=== PATIENT | female | born 1990 | race Two or more races ===

== ENCOUNTER 2017-05-22 00:06 | Emergency (ER) | payer SELFPAY ==
[2017-05-22] MEDS ORDERED: IPRATROPIUM/ALBUTEROL 0.5-2.5 MG/3 ML AMPUL NEB ONE ×2 (00:26→00:27)
[2017-05-22] MEDS ORDERED: PREDNISONE 20 MG TABLET PO ONE (00:27)
[2017-05-22] MEDS: ALBUTEROL SULFATE 0.083% NEB 2.5 MG/3 ML AMPUL NEB SCH ×2 (00:56→00:59)
--- NOTE | 2017-05-22 01:25 | RADIOLOGY REPORT (SQ) ---
EXAM DESCRIPTION: CHEST SINGLE VIEW CLINICAL HISTORY: sob COMPARISON: None. FINDINGS: Single frontal view of the chest. The cardiomediastinal silhouette has normal size and contour. No consolidation, pneumothorax, or pleural effusion. No displaced rib fractures identified. Upper abdominal soft tissues are unremarkable. IMPRESSION: 1. No acute pulmonary process identified.
[2017-05-22] MEDS ORDERED: ALBUTEROL SULFATE HFA (90 MCG/PUFF) 8 GM MDI (1 MDI/ER DISP) IH PRN (01:33)
--- NOTE | 2017-05-22 01:37 | ER Document Report ---
ED General - General Chief Complaint: Shortness Of Breath Stated Complaint: DIFFICULTY BREATHING Notes: Patient is a 26 year old female with a past medical history of asthma who presents with shortness of breath over the last 24 hours. Patient reports that she is currently out of all control medications as well as her albuterol inhaler. She notes that this has been the case for the past 6 months since she moved down from [place]. Today she states that over the past 12-14 hours she noted progressively worsening wheezing and tightness. Nothing seemed to improve or worsen the symptoms. She states this feels similar to when she has had mild asthma exacerbations in the past. She does not have a primary care doctor with whom she can receive medications. She denies any fever, cough, syncope, or chest pain. No vomiting. No known sick contacts. TRAVEL OUTSIDE OF THE [place] IN LAST 30 DAYS: No - Related Data Allergies/Adverse Reactions: No Known Allergies Allergy (Verified 05/22/17 00:12) Past Medical History - General Information source: Patient - Social History Smoking Status: Current Some Day Smoker Frequency of alcohol use: None Drug Abuse: None Lives with: Spouse/Significant other Family History: Reviewed & Not Pertinent Patient has suicidal ideation: No Patient has homicidal ideation: No Pulmonary Medical History: Reports: Hx Asthma Renal/ Medical History: Denies: Hx Peritoneal Dialysis Review of Systems - Review of Systems Notes: Constitutional: Negative for fever. HENT: Negative for sore throat. Eyes: Negative for visual changes. Cardiovascular: Negative for chest pain. Respiratory: Positive for shortness of breath. Gastrointestinal: Negative for abdominal pain, vomiting or diarrhea. Genitourinary: Negative for dysuria. Musculoskeletal: Negative for back pain. Skin: Negative for rash. Neurological: Negative for headaches, weakness or numbness. 10 point ROS negative except as marked above and in HPI. Physical Exam - Vital signs Vitals: Temp Pulse Resp BP Pulse Ox 98.9 F 102 H 22 H 150/87 H 94 05/22/17 00:10 05/22/17 00:10 05/22/17 00:10 05/22/17 00:10 05/22/17 00:10 Interpretation: Tachycardic Notes: PHYSICAL EXAMINATION: GENERAL: Well-appearing, well-nourished and in no acute distress. HEAD: Atraumatic, normocephalic. EYES: Pupils equal round and reactive to light, extraocular movements intact, sclera anicteric, conjunctiva are normal. ENT: nares patent, oropharynx clear without exudates. Moist mucous membranes. NECK: Normal range of motion, supple without lymphadenopathy LUNGS: Breath sounds clear to auscultation bilaterally and equal. Scant expiratory wheezing in all lung benz. HEART: Regular rate and rhythm without murmurs ABDOMEN: Soft, nontender, normoactive bowel sounds. No guarding, no rebound. No masses appreciated. EXTREMITIES: Normal range of motion, no pitting or edema. No cyanosis. NEUROLOGICAL: No focal neurological deficits. Moves all extremities spontaneously and on command. PSYCH: Normal mood, normal affect. SKIN: Warm, Dry, normal turgor, no rashes or lesions noted. Course - Re-evaluation Re-evalutation: 05/22/17 01:34 Patient presents with a mild exacerbation of their baseline asthma. Mild wheezing at time of presentation but vitals do not show significant hypoxemia or tachypnea. No retractions. Patient did clinically improve after receiving nebulizers here in the emergency department. Chest x-ray without evidence of an acute pneumonia. Patient able to ambulate without any respiratory distress. Based on patient's overall reassuring assessment, I believe they are stable for outpatient management with steroids. I do not suspect an acute alternative pathology at this time based on history and exam including acute pulmonary embolus, ACS, pneumothorax, or aortic dissection. At this time will discharge with return precautions and follow-up recommendations. Verbal discharge instructions given a the bedside and opportunity for questions given. Medication warnings reviewed. Patient is in agreement with this plan and has verbalized understanding of return precautions and the need for primary care follow-up in the next 24-72 hours. - Vital Signs Vital signs: Temp Pulse Resp BP Pulse Ox 98.7 F 97 22 H 136/76 H 100 05/22/17 01:42 05/22/17 01:42 05/22/17 00:10 05/22/17 01:42 05/22/17 01:42 - Diagnostic Test Radiology reviewed: Image reviewed, Reports reviewed Radiology results interpreted by me: 05/22/17 01:34 Chest x-ray: No acute infiltrate or pneumothorax Discharge - Discharge Clinical Impression: Asthma exacerbation Qualifiers: Asthma severity: mild Asthma persistence: persistent Qualified Code(s): J45.31 - Mild persistent asthma with (acute) exacerbation Condition: Good Disposition: HOME, SELF-CARE Additional Instructions: You were seen for an asthma exacerbation. Your symptoms improved with treatment here in the emergency department. However, it is very important that you return to the emergency department immediately if you began to have worsening difficulty breathing that does not respond to your normal home nebulizers. You are also being sent home on a five-day course of steroids that you should start taking tomorrow. Please also follow closely with your primary care physician. you should also return to emergency department if you develop fever greater than 101, persistent cough, persistent vomiting, pass out, or any other symptoms that are concerning to you. Prescriptions: Albuterol Sulfate [Proair HFA Inhalation Aerosol 8.5 gm MDI] 2 puff IH Q4H PRN # 1 mdi PRN Reason: Beclomethasone Dipropionate [Qvar] 1 - 2 inh IH BID PRN #1 aer.w.[email or web address] PRN Reason: Prednisone [Deltasone 20 mg Tablet] 3 tab PO DAILY 5 Days tablet
[2017-05-22 01:44] VITALS: BP 136/76
== END 2017-05-22 01:43 | disposition home or self-care (01) ==
LOC: ER 00:06
DX: J45.31 Mild persistent asthma with (acute) exacerbation (principal); T48.6X6A Underdosing of antiasthmatics, initial encounter; Z91.128 Patient's intentional underdosing of medication regimen for other reason; Z91.14 Patient's other noncompliance with medication regimen; F17.200 Nicotine dependence, unspecified, uncomplicated
CPT/HCPCS: 94640 ×2; 99284; 71045; J7512; J7620

== ENCOUNTER 2019-01-20 08:13 | Emergency (ER) | payer SELFPAY ==
[2019-01-20 08:18] VITALS: BP 128/68
[2019-01-20] MEDS ORDERED: HYDROCODONE/ACETAMINOPHEN 5-325 MG TABLET PO ONE (08:58)
[2019-01-20] MEDS ORDERED: ACETAMINOPHEN 325 MG TABLET PO ONE (08:58)
[2019-01-20] MEDS ORDERED: IBUPROFEN 600 MG TABLET PO ONE (08:58)
--- NOTE | 2019-01-20 09:01 | RADIOLOGY REPORT (SQ) ---
EXAM DESCRIPTION: WRIST LEFT 3 VIEWS COMPLETED DATE/TIME: 01/20/2019 8:43 am REASON FOR STUDY: injury to left wrist COMPARISON: None. NUMBER OF VIEWS: Three views. TECHNIQUE: AP, lateral, and oblique radiographic images acquired of the left wrist. LIMITATIONS: None. FINDINGS: MINERALIZATION: Normal. BONES: No acute fracture or dislocation. No worrisome bone lesions. Normal alignment. SOFT TISSUES: No soft tissue swelling. No foreign body. OTHER: No other significant finding. IMPRESSION: NEGATIVE STUDY OF THE LEFT WRIST. NO RADIOGRAPHIC EVIDENCE OF ACUTE INJURY. TECHNICAL DOCUMENTATION: JOB ID: [id number] [employer]- All Rights Reserved Reading location - IP/workstation name: [email or web address]
[2019-01-20] MEDS ORDERED: HYDROCODONE/ACETAMINOPHEN 5-325 MG (6 TAB/ER DISP) PO PRN (09:54)
--- NOTE | 2019-01-20 10:09 | ER Document Report ---
HPI - HPI Patient complains to provider of: L wrist injury Time Seen by Provider: 01/20/19 08:32 Pain Level: 5 Context: 28-year-old female presents to the emergency department with a left wrist injury sustained yesterday. She states that she was sitting in her closet cleaning it and she reached back and pushed off of the floor to get up when she developed acute pain. Patient said that she has swelling to the radial aspect of the wrist, is in acute pain and is crying, has range of motion that is limited secondary to pain, 2+ radial pulse, brisk cap refill, can give me an okay and thumbs up sign. - MUSCULOSKELETAL Musculoskeletal: REPORTS: Extremity pain Past Medical History - Social History Smoking Status: Current Some Day Smoker Family History: Reviewed & Not Pertinent Patient has suicidal ideation: No Patient has homicidal ideation: No Pulmonary Medical History: Reports: Hx Asthma Renal/ Medical History: Denies: Hx Peritoneal Dialysis Vertical Provider Document - CONSTITUTIONAL Notes: PHYSICAL EXAMINATION: Reviewed vital signs and charting by RN GENERAL: Alert, interacts well. No acute distress. HEAD: Normocephalic, atraumatic. EYES: Pupils equal and round. Extraocular movements intact. ENT: Oral mucosa moist, tongue midline. NECK: Full range of motion. Trachea midline. EXTREMITIES: Moves all 4 extremities spontaneously. Acute tenderness to palpation of the lateral left wrist over the distal radius, there is some mild edema with no ecchymosis, 2+ radial pulse, brisk cap refill, sensation intact light touch PSYCH: Normal affect, normal mood. SKIN: Warm, dry, normal turgor. No rashes or lesions noted. - INFECTION CONTROL TRAVEL OUTSIDE OF THE [place] IN LAST 30 DAYS: No Course - Re-evaluation Re-evalutation: 01/20/19 10:17 X-ray negative for fracture dislocation. Most likely soft tissue injury. I have given her analgesia. Plan is to put her in a cock-up splint with follow-up with orthopedics as needed. Stable for discharge. - Vital Signs Vital signs: Temp Pulse Resp BP Pulse Ox 98.5 F 78 16 128/68 H 100 01/20/19 08:17 01/20/19 08:17 01/20/19 08:17 01/20/19 08:17 01/20/19 08:17 Discharge - Discharge Clinical Impression: Left wrist injury Qualifiers: Encounter type: initial encounter Qualified Code(s): S69.92XA - Unspecified injury of left wrist, hand and finger(s), initial encounter Condition: Good Disposition: HOME, SELF-CARE Additional Instructions: You most likely have a sprained left wrist. X-ray did not show any fracture or dislocation which is very reassuring. I have given you something called a cock- up splint which you can wear for comfort. I have also given you information for the orthopedist on-call and you can call them if your symptoms do not improve in the next 2 to 3 weeks. Please take Tylenol 1000 mg every 6 hours for pain and/or ibuprofen 600 mg every 6 hours with food and/or milk for pain and inflammation. I have given you a very short course of pain medication that you can take in the evenings before bed to help you sleep. Please return to the emergency department if your hand starts to become discolored, you lose feeling in it, he develop acute arm weakness, or you have any other concerning symptoms. Forms: Return to Work Referrals: NASH LOW JR, DO [ACTIVE PROVISIONAL STAFF] - Follow up as needed
== END 2019-01-20 10:13 | disposition home or self-care (01) ==
LOC: ER 08:13
DX: S69.92XA Unspecified injury of left wrist, hand and finger(s), initial encounter (principal); Y93.E9 Activity, other interior property and clothing maintenance; J45.909 Unspecified asthma, uncomplicated; F17.200 Nicotine dependence, unspecified, uncomplicated
CPT/HCPCS: 73110; L3908; 99283

== ENCOUNTER 2019-05-24 22:49 | Emergency (ER) | payer SELFPAY ==
[2019-05-24] MEDS ORDERED: ONDANSETRON HCL INJ/PF 4 MG/2 ML SDV IV ONE (23:35)
[2019-05-24] MEDS ORDERED: NORMAL SALINE 1000 ML 1,000 ML IV ONE (23:35)
--- NOTE | 2019-05-24 23:36 | ER Document Report ---
ED Medical Screen (RME) - General Chief Complaint: Flu Symptoms Stated Complaint: POSSIBLE FOOD POISIONING Notes: Patient is a 28-year-old female with no reported past medical history presents to the emergency department with a chief complaint of nausea and vomiting that began 2 days ago. She states it was initially associated with some diarrhea but that has stopped as of yesterday. She admits to subjective fevers at home. Denies any known sick contacts or recent travel. Admits to widespread myalgias. No localized pains. Denies any vaginal bleeding or discharge. No reported urinary complaints. I have treated and performed a rapid initial assessment of this patient. A comprehensive ED assessment and evaluation of the patient, analysis of test results and completion of medical decision making process will be conducted by additional ED providers. TRAVEL OUTSIDE OF THE [place] IN LAST 30 DAYS: No - Related Data Allergies/Adverse Reactions: No Known Allergies Allergy (Verified 01/20/19 08:17) Past Medical History Pulmonary Medical History: Reports: Hx Asthma Renal/ Medical History: Denies: Hx Peritoneal Dialysis Physical Exam - Vital signs Vitals: Temp Pulse Resp BP Pulse Ox 98.0 F 107 H 22 H 131/103 H 98 05/24/19 22:56 05/24/19 22:56 05/24/19 22:56 05/24/19 22:56 05/24/19 22:56 Course - Vital Signs Vital signs: Temp Pulse Resp BP Pulse Ox 98.0 F 107 H 22 H 131/103 H 98 05/24/19 22:56 05/24/19 22:56 05/24/19 22:56 05/24/19 22:56 05/24/19 22:56
[2019-05-25 00:07] LABS: APPEARANCE,URINE SLIGHTLY-CLOUDY; BILIRUBIN,URINE NEGATIVE (NEGATIVE); COLOR,URINE AMBER; GLUCOSE, URINE NEGATIVE (NEGATIVE); KETONES,URINE 80 mg/dL (NEGATIVE); LEUKOCYTE ESTERASE,URINE NEGATIVE (NEGATIVE); NITRITE,URINE NEGATIVE (NEGATIVE); PROTEIN,URINE 100 mg/dL (NEGATIVE); URINE SPECIFIC GRAVITY 1.031
[2019-05-25 00:09] LABS: ABSOLUTE BASOPHILS # (AUTO) 0.1 10^3/uL (0.0-0.2); ABSOLUTE LYMPHOCYTES (AUTO) 2.4 10^3/uL (0.5-4.7); LYMPHOCYTES % (AUTO) 16.5 % (13-45); TOTAL CELLS COUNTED % (AUTO) 100 %
[2019-05-25 00:22] LABS: ALBUMIN 4.9 g/dL (3.5-5.0); ALKALINE PHOSPHATASE 81 U/L (38-126); ANION GAP 18 (5-19); ASPARTATE AMINO TRANSFERASE 17 U/L (14-36); BILIRUBIN,DIRECT 0.3 mg/dL (0.0-0.4); BILIRUBIN,TOTAL 0.9 mg/dL (0.2-1.3); BLOOD UREA NITROGEN 15 mg/dL (7-20); CALCIUM 9.9 mg/dL (8.4-10.2); CARBON DIOXIDE 17 mmol/L (22-30); CHLORIDE 106 mmol/L (98-107); GLUCOSE 123 mg/dL (75-110); POTASSIUM 3.8 mmol/L (3.6-5.0); TOTAL PROTEIN 8.3 g/dL (6.3-8.2)
[2019-05-25 00:24] LABS: ABSOLUTE EOSINOPHILS # (AUTO) 0.4 10^3/uL (0.0-0.6); ABSOLUTE MONOCYTES (AUTO) 0.8 10^3/uL (0.1-1.4); ABSOLUTE NEUT (AUTO) 10.7 10^3/uL (1.7-8.2); BASOPHILS % (AUTO) 0.4 % (0-2); EOSINOPHILS % (AUTO) 2.5 % (0-6); HEMATOCRIT 49.8 % (36.0-47.0); HEMOGLOBIN 16.7 g/dL (12.0-15.5); MEAN CORPUSCULAR HEMOGLOBIN 26.4 pg (27.0-33.4); MEAN CORPUSCULAR HGB CONC 33.4 g/dL (32.0-36.0); MEAN CORPUSCULAR VOLUME 79 fl (80-97); MONOCYTES % (AUTO) 5.6 % (3-13); PLATELET COUNT 235 10^3/uL (150-450); RED BLOOD COUNT 6.32 10^6/uL (3.72-5.28); RED CELL DISTRIBUTION WIDTH 14.1 % (11.5-14.0); WHITE BLOOD COUNT 14.3 10^3/uL (4.0-10.5)
[2019-05-25 00:28] LABS: A TYPE INFLUENZA AG NEGATIVE (NEGATIVE); B INFLUENZA AG NEGATIVE (NEGATIVE)
[2019-05-25] MEDS ORDERED: METOCLOPRAMIDE HCL INJ/PF 10 MG/2 ML SDV IV ONE (02:06)
[2019-05-25] MEDS ORDERED: KETOROLAC TROMETHAMINE INJ/PF 30 MG/1 ML SDV IV ONE (02:06)
[2019-05-25] MEDS: NORMAL SALINE 1000 ML 1,000 ML IV PRN ×2 (02:15→03:22)
--- NOTE | 2019-05-25 04:17 | ER Document Report ---
ED General - General Chief Complaint: Flu Symptoms Stated Complaint: POSSIBLE FOOD POISIONING Time Seen by Provider: 05/25/19 01:30 Notes: 28-year-old female presents with 2-day history of nausea/vomiting/diarrhea, fevers, and generalized body aches. Patient states that the diarrhea has been resolved as of yesterday. Patient denies any sick contacts or recent travel. Patient states she has been unable to keep anything down. TRAVEL OUTSIDE OF THE [place] IN LAST 30 DAYS: No - Related Data Allergies/Adverse Reactions: No Known Allergies Allergy (Verified 01/20/19 08:17) Past Medical History - Social History Smoking Status: Current Some Day Smoker Family History: Reviewed & Not Pertinent Patient has suicidal ideation: No Patient has homicidal ideation: No Pulmonary Medical History: Reports: Hx Asthma Renal/ Medical History: Denies: Hx Peritoneal Dialysis Review of Systems - Review of Systems Notes: Constitutional: Negative for fever. HENT: Negative for sore throat. Eyes: Negative for visual changes. Cardiovascular: Negative for chest pain. Respiratory: Negative for shortness of breath. Gastrointestinal: Positive for nausea/vomiting/diarrhea. Genitourinary: Negative for dysuria. Musculoskeletal: Positive for generalized body aches. Negative for back pain. Skin: Negative for rash. Neurological: Negative for headaches, weakness or numbness. 10 point ROS negative except as marked above and in HPI. Physical Exam - Vital signs Vitals: Temp Pulse Resp BP Pulse Ox 98.0 F 107 H 22 H 131/103 H 98 05/24/19 22:56 05/24/19 22:56 05/24/19 22:56 05/24/19 22:56 05/24/19 22:56 - Notes Notes: GENERAL: Well-appearing, well-nourished and uncomfortable. HEAD: Atraumatic, normocephalic. EYES: Extraocular movements intact, sclera anicteric, conjunctiva are normal. ENT: TMs normal, nares patent, oropharynx clear without exudates. Moist mucous membranes. NECK: Normal range of motion, supple without lymphadenopathy or JVD. LUNGS: Breath sounds clear to auscultation bilaterally and equal. No wheezes rales or rhonchi. HEART: Tachycardic without murmurs, rubs or gallops. ABDOMEN: Soft, diffusely tender. No guarding, no rebound. No masses appreciated. EXTREMITIES: Normal range of motion, no pitting or edema. No clubbing or cyanosis. NEUROLOGICAL: Cranial nerves II through XII grossly intact. Normal speech, normal gait. PSYCH: Normal mood, normal affect. SKIN: Warm, Dry, normal turgor, no rashes or lesions noted. Course - Re-evaluation Re-evalutation: 05/25/19 28-year-old female presents with flulike symptoms. Patient was initially given Zofran and IV fluids at triage with little relief in symptoms. Reglan and Toradol were ordered. Abdomen soft diffusely tender. Patient is tachycardic. PE is otherwise unremarkable. Labs indicate that patient is dehydrated. More IV fluids were ordered. 05/25/19 05:29 Pt feels much better. PO tolerant. Pt appears clinically improved. Will send pt home with script for Reglan and ibuprofen. Pt given close follow up with PCP and strict return precautions. Pt voices understanding and agrees with plan of care. - Vital Signs Vital signs: Temp Pulse Resp BP Pulse Ox 98.0 F 107 H 22 H 131/103 H 98 05/24/19 22:56 05/24/19 22:56 05/24/19 22:56 05/24/19 22:56 05/24/19 22:56 - Laboratory Result Diagrams: 05/24/19 23:46 05/24/19 23:46 Laboratory results interpreted by me: 05/24/19 05/24/19 05/24/19 23:46 23:46 23:46 WBC 14.3 H RBC 6.32 H Hgb 16.7 H Hct 49.8 H MCV 79 L MCH 26.4 L RDW 14.1 H Absolute Neuts (auto) 10.7 H Carbon Dioxide 17 L Creatinine 0.43 L Glucose 123 H Total Protein 8.3 H Urine Protein 100 H Urine Ketones 80 H Urine Blood SMALL H Urine Urobilinogen 2.0 H Discharge - Discharge Clinical Impression: Influenza-like syndrome, Dehydration Nausea & vomiting Qualifiers: Vomiting type: unspecified Vomiting Intractability: unspecified Qualified Code (s): R11.2 - Nausea with vomiting, unspecified Condition: Stable Disposition: HOME, SELF-CARE Instructions: Intravenous (IV) Fluids ([facility]), Reglan ([facility]), Vomiting ([facility]), Viral Syndrome ([facility]) Additional Instructions: Your flu test was negative however you most likely have a flulike illness. Please take Reglan as prescribed for nausea/vomiting. Please take ibuprofen as needed for body aches. Please also take [id number] Tylenol as directed on the bottle. Follow-up with 1 of the clinics listed in 3 to 5 days. Return immediately to ER if you start having any worsening symptoms, including worsening pain, vomiting not controlled by medication, fever, neck stiffness, abdominal pain, chest pain, shortness of breath, dizziness, or any other symptoms that are concerning to you. Prescriptions: Ibuprofen [Motrin 800 mg Tablet] 800 mg PO Q8H PRN #30 tab PRN Reason: Metoclopramide HCl [Reglan 10 mg Tablet] 1 - 2 tab PO ASDIR PRN #25 tablet PRN Reason: Forms: Return to Work Referrals: ERICA LEWIS MD [COMMUNITY BASED STAFF] - Follow up in 3-5 days [facility] [Provider Group] - Follow up in 3-5 days
[2019-05-25 05:44] VITALS: BP 124/78
== END 2019-05-25 05:43 | disposition home or self-care (01) ==
LOC: ER 22:49
DX: J11.1 Influenza due to unidentified influenza virus with other respiratory manifestations (principal); E86.0 Dehydration; R11.2 Nausea with vomiting, unspecified; R19.7 Diarrhea, unspecified; R50.9 Fever, unspecified; M79.10 Myalgia, unspecified site; F17.200 Nicotine dependence, unspecified, uncomplicated; J45.909 Unspecified asthma, uncomplicated
CPT/HCPCS: 99284; 96361; 96374; 96375; 36415; 83690; 84703; 85025; 80053; 81001; 87804; J1885; J2765; J2405; J7030